=== PATIENT | male | born 1975 | race African-American/Black ===

== ENCOUNTER 2021-03-25 15:40 | Emergency (ER) | payer OTHER ==
[~2021-03-25] VITALS: Ht 172.7 cm; Wt 80.0 kg
[2021-03-25] MEDS ORDERED: ACETAMINOPHEN 325MG TABLET PO ONE (16:00)
[2021-03-25] MEDS ORDERED: LACTATED RINGERS 2,400 ML IV STA (18:48)
[2021-03-25] MEDS ORDERED: CEFTRIAXONE 1 G PREMIX 50 ML IV NR (19:00)
[2021-03-25] MEDS ORDERED: ACETAMINOPHEN 325MG TABLET PO NR (19:00)
[2021-03-25 21:03] LABS: BASOPHILS % 0.7 % (0.0-2.0); EOSINOPHILS % 1.6 % (0.0-5.0); HEMATOCRIT. 32.9 % (42.0-52.0); HEMOGLOBIN. 11.2 g/dL (14.0-18.0); LYMPHOCYTES % 24.8 % (20.0-50.0); MEAN CORPUSCULAR HEMOGLOBIN 35.1 pg (28.0-32.0); MEAN CORPUSCULAR VOLUME 103.1 fL (80.0-94.0); MEAN PLATELET VOLUME 7.7 fl (7.4-10.4); MONOCYTES % 8.6 % (2.0-8.0); NEUTROPHILS % 64.3 % (40.0-76.0); PLATELET 306 x1000/uL (130-400); RED BLOOD CELL COUNT 3.19 mill/uL (4.7-6.1); RED CELL DISTRIBUTION WIDTH 12.7 % (11.6-14.6)
[2021-03-25 21:39] LABS: CHLORIDE 105 mEq/L (98-107)
[2021-03-25 23:55] LABS: CLARITY URINE CLEAR (CLEAR); COLOR URINE YELLOW (YELLOW); KETONES URINE NEGATIVE (NEGATIVE); LEUKOCYTE ESTERASE URINE NEGATIVE (NEGATIVE); NITRITE URINE NEGATIVE (NEGATIVE); OCCULT BLOOD URINE TRACE (NEGATIVE); PROTEIN URINE 1+ (NEGATIVE); SPECIFIC GRAVITY URINE 1.014 (1.005-1.030)
[2021-03-26 00:20] VITALS: BP 118/69
== END 2021-03-26 00:41 | disposition home or self-care (01) ==
LOC: ER 15:40
DX: U07.1 COVID-19 (principal); J12.82 Pneumonia due to coronavirus disease 2019; R73.9 Hyperglycemia, unspecified
CPT/HCPCS: 36415; 71045; 80048; 80076; 81003; 83605; 84145; 84484; 85025; 87040; 87086; 87426; 93005; 96365; 99285; J0696